=== PATIENT | female | born 1990 | race Caucasian/White ===

== ENCOUNTER 2018-03-27 17:31 | Emergency (ER) | payer MEDICAID, SELFPAY ==
[2018-03-27 17:33] VITALS: BP 132/89; PULSE 102; RESP 16; TEMP 36.2; O2SAT 98; BMI 35.2
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
[2018-03-27 18:51] VITALS: BP 137/94
== END 2018-03-27 19:13 | disposition home or self-care (01) ==
LOC: ED 19:03
PROVIDERS: Emergency Provider Emergency Medicine
DX: O99.89 Other specified diseases and conditions complicating pregnancy, childbirth and the puerperium (principal); S39.91XA Unspecified injury of abdomen, initial encounter; W50.0XXA Accidental hit or strike by another person, initial encounter; Y93.89 Activity, other specified; Y92.129 Unspecified place in nursing home as the place of occurrence of the external cause; Y99.0 Civilian activity done for income or pay; O24.313 Unspecified pre-existing diabetes mellitus in pregnancy, third trimester; E11.8 Type 2 diabetes mellitus with unspecified complications; Z79.4 Long term (current) use of insulin; Z3A.34 34 weeks gestation of pregnancy
CPT/HCPCS: 99281

== ENCOUNTER 2018-03-27 19:15 | Outpatient (CLI) | payer MEDICAID, SELFPAY ==
[2018-03-27 20:34] LABS: Absolute Lymphocyte Count 1.68 X10^3/ul (0.83-4.51); Absolute Neutrophil Count 6.3 X10^3/uL (2.0-7.7); Eosinophil# 0.01 X10^3/uL; Eosinophils% 0.1 % (0-5); Hematocrit 35.3 % (37-47); Hemoglobin 11.3 g/dl (12.0-15.0); Lymphocyte # 1.68 X10^3/ul (4.0); Mean Corpuscular Hgb 26.3 pg (27.0-32.0); Mean Corpuscular Volume 82.1 fL (81-99); Mean Platelet Vol. 10.2 fl (6.2-12.0); Monocyte% 4.8 % (0-10); Neutrophil # 6.29 X10^3/uL (2.7-7.7); Neutrophil % 74.9 % (47-70); POSITIVE COUNT NO; POSITIVE DIFFERENTIAL NO; POSITIVE MORPHOLOGY NO; Platelet Count 186 K/mm3 (150-450); RBC Distribution Width CV 16.5 % (11.6-14.6); RBC Distribution Width SD 48.8 fl (35.1-43.9); White Blood Count 8.4 K/mm3 (4.4-11.0)
[2018-03-27 20:41] LABS: Prothrombin Time (Protime)PT. 13.4 SECONDS (11.7-14.9)
[2018-03-27 20:42] LABS: Fibrinogen 645 mg/dl (203-444); Partial Thromboplast Time 29.1 Seconds (24.1-36.2)
[2018-03-27 22:00] VITALS: BMI 35.2
[2018-03-27 22:05] VITALS: RESP 18
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
== END 2018-03-27 22:05 | disposition home or self-care (01) ==
LOC: WPOUT 19:25 → WP 03-28 08:40
PROVIDERS: Obstetrics & Gynecology
DX: O99.89 Other specified diseases and conditions complicating pregnancy, childbirth and the puerperium (principal); S39.91XA Unspecified injury of abdomen, initial encounter; W50.0XXA Accidental hit or strike by another person, initial encounter; Y93.89 Activity, other specified; Y92.129 Unspecified place in nursing home as the place of occurrence of the external cause; Y99.0 Civilian activity done for income or pay; O24.313 Unspecified pre-existing diabetes mellitus in pregnancy, third trimester; E11.9 Type 2 diabetes mellitus without complications; Z79.4 Long term (current) use of insulin; Z3A.34 34 weeks gestation of pregnancy
CPT/HCPCS: 36415; 59025; 59050; 85025; 85384; 85610; 85730; 99218; 99281; G0378

== ENCOUNTER 2018-04-15 05:42 | Inpatient (IN) | payer MEDICAID, SELFPAY ==
[2018-04-10 13:14] VITALS: BMI 36.8
[2018-04-15] VITALS (20 sets, daily range): BP systolic 115–139; BP diastolic 64–92; PULSE 52–82; RESP 16–18; TEMP 35.8–36.6; O2SAT 95–99; BMI 36.6; BMI 36.8
[2018-04-15] MEDS: Lactated Ringers 1,000 ML 999 ML IV ×2 (05:50→07:01)
[2018-04-15 06:20] LABS: Bedside Glucose 97 mg/dL (70-110)
[2018-04-15 06:28] LABS: Absolute Lymphocyte Count 1.67 X10^3/ul (0.83-4.51); Absolute Neutrophil Count 5.9 X10^3/uL (2.0-7.7); Basophil# 0.01 X10^3/uL; Basophil% 0.1 % (0-1); Eosinophil# 0.04 X10^3/uL; Eosinophils% 0.5 % (0-5); Hematocrit 34.1 % (37-47); Hemoglobin 11.1 g/dl (12.0-15.0); Lymphocyte # 1.67 X10^3/ul (4.0); Lymphocyte % 20.2 % (19-41); Mean Corp Hgb Conc 32.6 g/gl (32-36); Mean Corpuscular Hgb 26.7 pg (27.0-32.0); Mean Platelet Vol. 10.4 fl (6.2-12.0); Monocyte# 0.63 X10^3/uL; Monocyte% 7.6 % (0-10); Neutrophil # 5.87 X10^3/uL (2.7-7.7); Neutrophil % 71.1 % (47-70); Platelet Count 242 K/mm3 (150-450); RBC Distribution Width CV 16.2 % (11.6-14.6); RBC Distribution Width SD 48.1 fl (35.1-43.9); Red Blood Count 4.16 M/mm3 (4.2-5.4); White Blood Count 8.3 K/mm3 (4.4-11.0)
[2018-04-15 06:33] LABS: AST(SGOT) 13 U/L (15-37); Alanine Aminotransfer ALT/SGPT 14 U/L (13-56); Creatinine, Serum 0.57 mg/dL (0.55-1.02); EST Glomerular Filtration Rate 134 mL/min (>60); Est Glom Filt Rate - Afr Amer 163 mL/min (>60); Estimated Creatinine Clearance 129.15 ml/min; Uric Acid 6.5 mg/dL (2.6-6.0)
[2018-04-15 06:34] LABS: International Normalized Ratio 1.1; Prothrombin Time (Protime)PT. 13.7 SECONDS (11.7-14.9)
[2018-04-15 06:35] LABS: Partial Thromboplast Time 31.6 Seconds (24.1-36.2)
[2018-04-15 06:36] LABS: POSITIVE COUNT NO; POSITIVE DIFFERENTIAL NO; POSITIVE MORPHOLOGY NO
[2018-04-15 06:46] LABS: Protein, Urine (Random) 19.3 mg/dL (<11.9); Protein:Creat Ratio 157 mg/g CRE (0-200)
[2018-04-15] MEDS: Sodium Citrate/Citric Acid 30 ML UDC PO (07:11)
[2018-04-15] MEDS: Cefazolin 2 GM in 0.9% Normal Saline 100 ML IV (07:37)
[2018-04-15] MEDS: Oxytocin 30 units/NS 500 ml 30 UNITS/500 ML IV.SOLN 167 UNITS IV (07:50)
[2018-04-15] MEDS: Ondansetron 4 MG/2 ML Vial IV (07:53)
[2018-04-15] MEDS: Lactated Ringers 1,000 ML 100 ML IV ×3 (08:30→23:40)
--- NOTE | 2018-04-15 08:35 | PLAC_PTH ---
PATIENT: JUAN TERRAZAS LOC: [facility] U#:[id number] AGE/SX: 27/F ROOM: WP007 RE04/15/[address]: Dr. Wilma Briscoe MD : 1990 BED: 1 DIS: 04/18/2018 SPEC #: [id number] RECD: 04/15/18 15:55 STATUS: [place] #: [id number] BAN: 04/15/18 08:[address]: Wilma Briscoe DEPT: SURGICAL PATHOLOGY RECD BY: Nathan Evans ENTERED: 04/16/18 10:04 SP TYPE: PLACENTA NEO DR: No Primary Care Phys Tissues: Placenta, NOS Procedures: Surgery Specimen Level V HEADER OPERATION: Repeat section PRE-OP DIAGNOSIS: Preeclampsia TISSUE SUBMITTED: Placenta MICROSCOPIC DIAGNOSIS Watson placenta (536 gm): Umbilical cord ? trivascular with no inflammation. Placental membranes ? mild chronic decidual inflammation. Placental disc ? mild Jailene-Jez change and intervillous congestion. AM:krysten 04/18/18 MICROSCOPIC DESCRIPTION Slides are reviewed. GROSS DESCRIPTION SPECIMEN: PLACENTA / CLINICAL INFORMATION: A. Weight: 3.052 kg B. Gestational Age: 37 weeks C. Sex: Female PLACENTAL WEIGHT (POST FIXATION): 536 gm PLACENTAL DIMENSIONS: 18 x 16 x 3 cm PLACENTAL SHAPE: Usual ovoid PLACENTAL WEIGHT FOR GESTATIONAL AGE: Within 10-99th percentile MEMBRANES - Present A. Insertion: The membranes are inserted in one-fourth circumference of placenta about 2 cm away from the margin. Grossly, the membrane of insertion appears to be circummarginate. B. Site of rupture from edge: The membranes are fragmented and distance of rupture cannot be assessed. C. Color of membrane: Umana-marie D. Abnormalities: None UMBILICAL CORD - Present A. Color: Umana-marie B. Insertion: Paracentral C. Length: 25 cm D. Diameter: 1.2 cm E. Number of vessels: Three F. Abnormalities: None PLACENTAL DISC - Present A. Color of surface: Umana-marie B. surface abnormalities: None C. Maternal cotyledons: Intact with minimal tears D. Attached retro placental clot: No clot E. Cut surface: Dark red and spongy F. Lesions: None G. Separate clot: Absent SECTIONS SUBMITTED: 1. Membrane roll 2. Cord, maternal end, insertion of membrane away from the margin 3. Cord, end, insertion of membrane away from the margin 4. Placental disc, and maternal surfaces 5. Placental disc, and maternal surfaces 6. Placental disc, and maternal surfaces SUZY:krysten 04/17/18 TC:5 CPT: 33027
--- NOTE | 2018-04-15 08:49 | PCM.OB.CSR ---
Delivery Classification: Scheduled Final FAISAL: 05/06/18 Final FAISAL Source: US <20 weeks Gestational age: 37 Weeks and 0 Days Indications for : Repeat Elective , - - Preeclampsia without severe features Gestational diabetes on insulin Description of Procedure: The patient was taken to the operating room. She was prepped and draped in the dorsal supine position with a leftward tilt. A Pfannenstiel skin incision was made approximately 2 cm above the symphysis pubis and carried through to underlying layer fascia with the scalpel. The fascia was incised incised in the midline and extended laterally with the Elaine scissors. The fascia was dissected off the rectus muscles with blunt and sharp dissection. The rectus muscles were in the midline and the peritoneum was entered bluntly. The peritoneal incision was stretched and the bladder blade was placed. The uterine incision was made in a low transverse fashion with the scalpel and extended superiorly and inferiorly with blunt dissection. The amniotic membranes were ruptured bluntly and clear amniotic fluid returned. The infant's head was brought to the incision in the flexed position and delivered without difficulty. The remainder of the was delivered with gentle traction and fundal pressure in the standard fashion. The mouth and nares were bulb suctioned. The cord was clamped and cut as the infant was stimulated. Cord clamping was delayed. The infant was handed off to the waiting nursing staff. The placenta was delivered with fundal massage and gentle traction in the standard fashion. The uterus was exteriorized and cleared of all clots and debris. The cervix was dilated with a ring forcep. The uterine incision was closed with #1 Vicryl in a running locked fashion. A second layer of the same suture was used in an imbricating fashion. The incision was examined and was found to be hemostatic. The uterus was placed back into the peritoneal cavity and hemostasis was again confirmed. The rectus muscles were examined and any bleeding was Bovie cauterized. The surgical teams outer gloves were changed. The parietal peritoneum and rectus muscles were closed en bloc with an 0 Vicryl running suture. The surgical teams outer gloves were then changed. The rectus fascia was examined and any bleeding was Bovie cauterized and the rectus fascia was closed with 0 PDS suture suture in a running standard fashion. The subcutaneous tissue was examining and any bleeding was Bovie cauterized. The subcutaneous tissue was reapproximated with 3-0 Vicryl suture. The skin was closed in a subcuticular fashion by the REED MAKER with me present in the labor and delivery suite. I performed the remainder of the procedure with assistance. All sponge, lap, and needle counts were correct. The patient was taken to her room for recovery in a stable condition. Amniotic Membrane Rupture Type: Artificial Amniotic Fluid Description: Clear Placenta Disposition: Sent to Pathology Drain: Schmid to straight drain Fluids Replaced: 1300 cc Cord Entanglement: None Cord Vessel Description: 3 Vessels Esitmated Blood Loss (ml): 700cc Infant Gender: Female (1 minute): 9 (5 minute): 9 Delayed cord clamping: Yes Complications: None - Admit VTE Documentation VTE Present on Admission: No VTE Mechan Device Prophylaxis: SCD's VTE Pharm Prophylaxis ordered?: Yes
[2018-04-15 09:16] LABS: Bedside Glucose 82 mg/dL (70-110)
[2018-04-15] MEDS: Ketorolac 30 MG/ML Syringe IV ×3 (12:37→23:40)
[2018-04-15] MEDS: AMOXICILLIN 500 MG CAPSULE PO ×3 (12:38→23:48)
[2018-04-15] MEDS: Lactated Ringers 500 ML 999 ML IV (18:54)
[2018-04-16] VITALS (7 sets, daily range): BP systolic 117–122; BP diastolic 73–76; PULSE 63–80; RESP 15–18; TEMP 36.4–36.7; O2SAT 95–98
[2018-04-16 04:44] LABS: Hemoglobin 9.1 g/dl (12.0-15.0); Mean Corp Hgb Conc 32.5 g/gl (32-36); Mean Corpuscular Hgb 27.2 pg (27.0-32.0); Mean Corpuscular Volume 83.6 fL (81-99); Mean Platelet Vol. 10.1 fl (6.2-12.0); Platelet Count 164 K/mm3 (150-450); RBC Distribution Width CV 16.2 % (11.6-14.6); RBC Distribution Width SD 48.2 fl (35.1-43.9); Red Blood Count 3.35 M/mm3 (4.2-5.4); White Blood Count 8.6 K/mm3 (4.4-11.0)
[2018-04-16 04:45] LABS: Scan Indicated on CBC? Y/N NO
[2018-04-16] MEDS: Enoxaparin 40 MG/0.4 ML Syringe SC (06:16)
[2018-04-16] MEDS: AMOXICILLIN 500 MG CAPSULE PO ×3 (06:16→19:48)
[2018-04-16] MEDS: Ketorolac 30 MG/ML Syringe IV ×3 (06:16→18:03)
[2018-04-16 06:31] LABS: Bedside Glucose 107 mg/dL (70-110)
[2018-04-16] MEDS: Acetaminophen 500 MG Tablet 1000 MG PO (08:21)
--- NOTE | 2018-04-16 09:01 | PCM.PN.OB ---
Subjective: Doing well per patient and nursing staff. Ross catheter in place, good output. Taking PO without difficulty. Up to chair last evening, none this am. Denies any headaches, visual changes, chest pain, shortness of breath, increased vaginal bleeding/clots, increased pain, or leg pain. Planning D/C home tomorrow. - Physical Exam General: Alert, Oriented x3, Cooperative HEENT: Atraumatic, Normocephalic Cardiovascular: Regular rate, Regular Rhythm, No murmurs Abdomen: Bowel Sounds Present, - - Fundus firm 2 below U. Dressing dry and intact. Neurological: Deep Tendon Reflexes 2+/4 and Symmetrical, - - No clonus. Mehul's negative bilaterally . Psych/Mental Status: Normal Affect, Appropriate Vital Signs Temp Pulse Resp BP Pulse Ox 98.1 F 63 15 117/73 95 04/16/18 07:26 04/16/18 07:26 04/16/18 07:26 04/16/18 07:26 04/16/18 07:26 Oxygen Delivery Method Room Air Weight: 215 lb Body Mass Index (BMI) 36.8 Intake and Output for Last 24 Hours 04/14/18 04/15/18 04/16/18 23:59 23:59 23:59 Intake Total 5477 / 5477 1186 / 1186 Output Total 1400 / 1400 1900 / 1900 Balance 4077 / 4077 -714 / -714 Laboratory Tests Past 24 Hrs 04/16/18 04:15 WBC 8.6 RBC 3.35 L Hgb 9.1 L Hct 28.0 L MCV 83.6 MCH 27.2 MCHC 32.5 RDW 16.2 H RDW Differential 48.2 H Plt Count 164 MPV 10.1 POC Glucose 04/16/18 04/15/18 06:25 09:07 POC Glucose 107 82 Medical Necessity - Tobacco Use Smoking Status: Current every day smoker Assessment/Plan A: POD #1 Repeat Section, elective Gestational Diabetes Mellitus- on insulin Pre-eclampsia without severe features P: 1) Routine care. 2) BP stable. 3) D/C ross 4) Up to chair and ambulation today 5) Planning D/C home tomorrow.
[2018-04-16] MEDS: Senna/Docusate Sodium 1 Tablet PO ×2 (10:25→22:48)
[2018-04-16] MEDS: oxyCODONE 5 MG Tablet PO ×3 (11:23→22:48)
[2018-04-16] MEDS: 0.9% Saline Lock 10 ML Syringe IV ×2 (12:15→18:04)
[2018-04-17] VITALS (16 sets, daily range): BP systolic 129–165; BP diastolic 74–88; PULSE 71–89; RESP 16–20; TEMP 36.3–36.8; O2SAT 95–99
[2018-04-17] MEDS: Naproxen 250 MG Tablet PO ×3 (01:16→22:17)
[2018-04-17] MEDS: AMOXICILLIN 500 MG CAPSULE PO ×4 (01:17→17:41)
[2018-04-17] MEDS: oxyCODONE 5 MG Tablet PO ×3 (03:16→19:41)
[2018-04-17] MEDS: Senna/Docusate Sodium 1 Tablet PO ×2 (08:31→22:18)
--- NOTE | 2018-04-17 08:53 | PCM.PN.OB ---
Subjective: pain moderately well-controlled, average lochia, some flatus, no BM. - Physical Exam General: Alert, Cooperative, No apparent distress Abdomen: Soft, Non-Distended - moderately, softly, Tender - appropriately Extremities: Edema - 1+ Skin: Incision - clean, dry and intact bandage Vital Signs Temp Pulse Resp BP Pulse Ox 98.3 F 72 17 132/74 H 95 04/17/18 03:18 04/17/18 03:18 04/17/18 03:18 04/17/18 03:18 04/16/18 14:30 Oxygen Delivery Method Room Air Weight: 97.522 kg Body Mass Index (BMI) 36.8 Intake and Output for Last 24 Hours 04/15/18 04/16/18 04/17/18 23:59 23:59 23:59 Intake Total 5477 / 5477 1186 / 1186 Output Total 1400 / 1400 2250 / 2250 Balance 4077 / 4077 -1064 / -1064 Medical Necessity - Tobacco Use Smoking Status: Current every day smoker Assessment/Plan POD#2 s/p repeat c/s likely home tomorrow infant getting ZULAY scoring due to tylenol 3 use during
--- NOTE | 2018-04-17 08:58 | PCM.DCCSEC ---
Discharge Diet: No Restrictions Discharge Activity: Return to Normal Activity, May Not Drive - for 2 weeks, May not drive while taking narcotic pain medications., May Shower, May Take a Tub Bath - in 7 days. May resume sexual activity in: 4-6 weeks Lifting Restrictions: 20 pounds Additional Activity Instructions:: Nothing in the vagina for 4-6 weeks. You may return to work/school in 6 weeks. Call your doctor if your incision/area has: Continuous Slow Oozing, Sudden Increased Bleeding, Increased Pain/ Swelling, Increased Redness, Foul Smelling Discharge Call your doctor if you observe: Fever of 101 or Higher, Using more than one pad per hour - for 2 hours Suture Line Care: Avoid Pulling/Pushing, Avoid Pinching/Bending Cleanse incision/area with: Keep Dressing Clean & Dry Additional Instructions: If you experience any of the following, contact your healthcare provider. Bleeding that soaks a pad every hour for 2 hours Fever 100.4 or higher Unrelieved incision or abdominal pain Swelling, redness, discharge or bleeding from your incision or episiotomy site Your incision begins to separate Problems urinating (including inability to urinate or burning while urinating). Visual changes Severe headache Flu-like symptoms Pain or redness in one of both of your breasts Pain, warmth, tenderness or swelling in your legs, especially the calf area Frequent nausea and vomiting Symptoms of depression or anxiety If you experience any of the following, call 911 or go to the nearest Emergency Room. Chest pain Problems breathing Seizure activity Partial or complete paralysis of a body part, slurred speech, weakness or drooping of the face, or a sudden inability to walk or hold your balance Allergies/Adverse Reactions: Allergies No Known Allergies Allergy (Verified 03/27/18 22:14) Medications to take at Discharge Ferrous Sulfate 325 mg PO DAILY@0800 03/27/18 Insulin NPH Human Isophane [Humulin N] 8 units SQ QHS 03/27/18 Pnv95/Ferrous Fumarate/FA [ Formula] 1 each PO DAILY 03/27/18 Insulin NPH Hum/Reg Insulin Hm [Humulin 70-30 Vial] 5 unit SQ BREAKFAST 04/10/18 Amoxicillin [Amoxil] 500 mg PO Q6H 04/15/18 Docusate Sodium [Colace] 100 mg PO BID PRN PRN #60 cap 04/17/18 Ibuprofen [Motrin] 800 mg PO TID PRN PRN #60 tab 04/17/18 Oxycodone HCl/Acetaminophen [Percocet 5/325] 1 - 2 tablet PO Q8 PRN 7 Days #28 tablet 04/17/18 The following prescriptions were given: Docusate Sodium [Colace] 100 mg PO BID PRN PRN #60 cap PRN Reason: Constipation Ibuprofen [Motrin] 800 mg PO TID PRN PRN #60 tab PRN Reason: Pain Oxycodone HCl/Acetaminophen [Percocet 5/325] 1 - 2 tablet PO Q8 PRN 7 Days #28 tablet PRN Reason: Pain Follow-Up: Call to make an appointment with your doctor for an incision check in 1-2 weeks. You will also need a 6 week post- follow up appointment. Test results from this visit will be discussed in further detail at your follow-up appointment, if applicable. Please Follow Up With: Wilma Briscoe MD - Call to make an appointment for an incision check in 1-2 [phone] When: You will need a post check in 6 weeks. Primary Care Physician: Care Physician,No Primary [Primary Care Provider] -
--- NOTE | 2018-04-17 13:39 | NURSING ---
Patient reports seeing a quarter-sized clot in toilet after voiding.
--- NOTE | 2018-04-17 13:50 | NURSING ---
Reflexes +1. No clonus. Patient denies headache, visual disturbances, RUQ pain, and nausea/vomiting.
[2018-04-17 14:16] LABS: Hematocrit 32.4 % (37-47); Mean Corp Hgb Conc 30.9 g/gl (32-36); Mean Corpuscular Volume 84.4 fL (81-99); Mean Platelet Vol. 9.8 fl (6.2-12.0); Platelet Count 217 K/mm3 (150-450); RBC Distribution Width CV 16.8 % (11.6-14.6); RBC Distribution Width SD 51.3 fl (35.1-43.9); Red Blood Count 3.84 M/mm3 (4.2-5.4); White Blood Count 8.3 K/mm3 (4.4-11.0)
[2018-04-17 14:21] LABS: International Normalized Ratio 0.9; Prothrombin Time (Protime)PT. 12.5 SECONDS (11.7-14.9)
[2018-04-17 14:22] LABS: Partial Thromboplast Time 30.5 Seconds (24.1-36.2)
[2018-04-17 14:23] LABS: Scan Indicated on CBC? Y/N NO
[2018-04-17 14:25] LABS: AST(SGOT) 13 U/L (15-37); Alanine Aminotransfer ALT/SGPT 12 U/L (13-56); Creatinine, Serum 0.66 mg/dL (0.55-1.02); EST Glomerular Filtration Rate 114 mL/min (>60); Est Glom Filt Rate - Afr Amer 138 mL/min (>60); Estimated Creatinine Clearance 111.54 ml/min; Uric Acid 7.3 mg/dL (2.6-6.0)
[2018-04-17 15:58] LABS: Protein, Urine (Random) 35.2 mg/dL (<11.9); Protein:Creat Ratio 609 mg/g CRE (0-200)
--- NOTE | 2018-04-17 16:52 | CASEMGMT ---
Social Work Note Labor and Delivery Unit Consult received today to assess mother of baby (MOB) per protocol, as infant on ZUALY for reported prescribed opiates during . Medical records reviewed. This scenario writer familiar with MOB from previous delivery at [facility]. Plan: Will plan to see MOB on 04-18-18 for assessment, support, and determination of resource needs. -JAZMINE Elam, TOW TRUCK OPERATOR
--- NOTE | 2018-04-17 17:17 | PCM.PN.OB ---
Subjective: No complaints. Denies headache or blurry vision. - Physical Exam General: Alert, Oriented x3 Vital Signs Temp Pulse Resp BP Pulse Ox 97.5 F L 71 16 156/86 H 97 04/17/18 13:34 04/17/18 13:34 04/17/18 13:34 04/17/18 16:20 04/17/18 13:34 Oxygen Delivery Method Room Air Weight: 215 lb Body Mass Index (BMI) 36.8 Intake and Output for Last 24 Hours 04/15/18 04/16/18 04/17/18 23:59 23:59 23:59 Intake Total 5477 / 5477 1186 / 1186 Output Total 1400 / 1400 2250 / 2250 Balance 4077 / 4077 -1064 / -1064 Laboratory Tests Past 24 Hrs 04/17/18 04/17/18 04/17/18 14:05 14:05 14:05 WBC 8.3 RBC 3.84 L Hgb 10.0 L Hct 32.4 L MCV 84.4 MCH 26.0 L MCHC 30.9 L RDW 16.8 H RDW Differential 51.3 H Plt Count 217 MPV 9.8 PT 12.5 INR 0.9 APTT 30.5 Creatinine 0.66 Estim Creat Clear Calc 111.54 Est GFR (MDRD) Af Amer 138 Est GFR (MDRD) Non-Af 114 Uric Acid 7.3 H AST 13 L ALT 12 L U Random Total Protein Urine Creatinine Protein/Creatinin Ratio 04/17/18 15:30 WBC RBC Hgb Hct MCV MCH MCHC RDW RDW Differential Plt Count MPV PT INR APTT Creatinine Estim Creat Clear Calc Est GFR (MDRD) Af Amer Est GFR (MDRD) Non-Af Uric Acid AST ALT U Random Total Protein 35.2 H Urine Creatinine 57.80 Protein/Creatinin Ratio 609 H Medical Necessity - Tobacco Use Smoking Status: Current every day smoker Assessment/Plan POD#2 PreE - PreE labs reviewed. Plan for 24 hours Mg. Monitor BP's & will treat if in severe range. Plan discussed with patient.
[2018-04-17] MEDS: Lactated Ringers 1,000 ML 25 ML IV (17:45)
[2018-04-17] MEDS: Magnesium Sulfate 20 GM/500 ML BAG IV (18:11)
--- NOTE | 2018-04-17 21:16 | NURSING ---
Report given to Radha Vines RN. She will assume care of patient at this time.
[2018-04-18] VITALS (13 sets, daily range): BP systolic 119–146; BP diastolic 77–88; PULSE 79–99; RESP 16–18; TEMP 36.4–37.1; O2SAT 93–98
[2018-04-18] MEDS: AMOXICILLIN 500 MG CAPSULE PO ×2 (00:44→06:40)
[2018-04-18] MEDS: Magnesium Sulfate 20 GM/500 ML BAG IV (04:11)
[2018-04-18] MEDS: oxyCODONE 5 MG Tablet PO (06:09)
--- NOTE | 2018-04-18 08:47 | PCM.PN.OB ---
Subjective: pain well controlled, average lochia, no N/V. Denies FUENTES, visual changes or epigastric pain - Physical Exam General: Alert, Cooperative, No apparent distress Abdomen: Soft, Non-Distended Extremities: Edema - 1+, - - 1+ DTRs, no clonus Skin: Incision - bandage clean,d ry and intact Vital Signs Temp Pulse Resp BP Pulse Ox 97.5 F L 80 18 135/85 H 95 04/18/18 08:00 04/18/18 08:00 04/18/18 08:00 04/18/18 08:00 04/18/18 08:00 Oxygen Delivery Method Room Air Weight: 97.522 kg Body Mass Index (BMI) 36.8 Intake and Output for Last 24 Hours 04/16/18 04/17/18 04/18/18 23:59 23:59 23:59 Intake Total 1186 / 1186 809 / 809 1055 / 1055 Output Total 2250 / 2250 1400 / 1400 1425 / 1425 Balance -1064 / -1064 -591 / -591 -370 / -370 Laboratory Tests Past 24 Hrs 04/17/18 04/17/18 04/17/18 14:05 14:05 14:05 WBC 8.3 RBC 3.84 L Hgb 10.0 L Hct 32.4 L MCV 84.4 MCH 26.0 L MCHC 30.9 L RDW 16.8 H RDW Differential 51.3 H Plt Count 217 MPV 9.8 PT 12.5 INR 0.9 APTT 30.5 Creatinine 0.66 Estim Creat Clear Calc 111.54 Est GFR (MDRD) Af Amer 138 Est GFR (MDRD) Non-Af 114 Uric Acid 7.3 H AST 13 L ALT 12 L U Random Total Protein Urine Creatinine Protein/Creatinin Ratio 04/17/18 15:30 WBC RBC Hgb Hct MCV MCH MCHC RDW RDW Differential Plt Count MPV PT INR APTT Creatinine Estim Creat Clear Calc Est GFR (MDRD) Af Amer Est GFR (MDRD) Non-Af Uric Acid AST ALT U Random Total Protein 35.2 H Urine Creatinine 57.80 Protein/Creatinin Ratio 609 H Medical Necessity - Tobacco Use Smoking Status: Current every day smoker Assessment/Plan POD#3 ok to d/c magnesium, preeclampsia w/o severe features. Start labetalol. If BP controlled w/ po meds ok to d/c home after lunch doing well
--- NOTE | 2018-04-18 08:50 | PCM.DC.SUM ---
Discharge Date and Diagnosis Date of Admission: 04/15/18 Date of Discharge: 04/18/18 Hospital Course and Treatment Operations: - - Repeat LTCS via pfannensteil skin incision Procedures: None Summary of Care Provided: The patient is a 27 year old emale admitted for repeat c/s. This was performed without difficulty. She had mild acute blood loss anemia. She had on POD#2 increased BP and increased protein in urine, however, this had lochia in it. Labs stable other than increase in uric acid. No severe symptoms. Had magnesium for 18 hrs. D/anmol and started on po labetolol. D/anmol home on POD#3 with labetalol, preeclampsia precautions and routine pain prescriptions. [] Discharge Diet: No Restrictions Discharge Activity: Return to Normal Activity, May Not Drive - for 2 weeks, May not drive while taking narcotic pain medications., May Shower, May Take a Tub Bath - in 7 days. May resume sexual activity in: 4-6 weeks Additional Activity Instructions:: Nothing in the vagina for 4-6 weeks. You may return to work/school in 6 weeks. Call your doctor if your incision/area has: Continuous Slow Oozing, Sudden Increased Bleeding, Increased Pain/ Swelling, Increased Redness, Foul Smelling Discharge Call your doctor if you observe: Fever of 101 or Higher, Using more than one pad per hour - for 2 hours Suture Line Care: Avoid Pulling/Pushing, Avoid Pinching/Bending Cleanse incision/area with: Keep Dressing Clean & Dry Home Medications: Medications to take at Discharge Ferrous Sulfate 325 mg PO DAILY@0800 03/27/18 Pnv95/Ferrous Fumarate/FA [ Formula] 1 each PO DAILY 03/27/18 Amoxicillin [Amoxil] 500 mg PO Q6H 04/15/18 Docusate Sodium [Colace] 100 mg PO BID PRN PRN #60 cap 04/17/18 Ibuprofen [Motrin] 800 mg PO TID PRN PRN #60 tab 04/17/18 Oxycodone HCl/Acetaminophen [Percocet 5/325] 1 - 2 tablet PO Q8 PRN 7 Days #28 tablet 04/17/18 Labetalol [Trandate (Beta Tre)] 100 mg PO BID #60 tab 04/18/18 Following Prescrptions Were Given to Patient: Docusate Sodium [Colace] 100 mg PO BID PRN PRN #60 cap PRN Reason: Constipation Ibuprofen [Motrin] 800 mg PO TID PRN PRN #60 tab PRN Reason: Pain Oxycodone HCl/Acetaminophen [Percocet 5/325] 1 - 2 tablet PO Q8 PRN 7 Days #28 tablet PRN Reason: Pain Labetalol [Trandate (Beta Tre)] 100 mg PO BID #60 tab Primary Care Physician: Care Physician,No Primary [Primary Care Provider] - Please Follow Up With: Wilma Briscoe MD - Call to make an appointment for an incision check in 1-2 [phone] When: You will need a post check in 6 weeks. Medical Necessity - Tobacco Use Smoking Status: Current every day smoker Meaningful Use Info Meaningful Use Diagnoses (Choose all that apply): None applicable
[2018-04-18] MEDS: Labetalol 100 MG Tablet PO (09:05)
[2018-04-18] MEDS: 0.9% Saline Lock 10 ML Syringe IV (10:06)
--- NOTE | 2018-04-18 11:01 | NURSING ---
Magnesium Sulfate d/c'd at 0905 and labetolol 100mg po given as ordered at this time. LR @ 25cc/hr continued. Will continue to monitor BP's.
[2018-04-18] MEDS: Senna/Docusate Sodium 1 Tablet PO (11:20)
--- NOTE | 2018-04-18 11:20 | CASEMGMT ---
Social Work Assessment Labor and Delivery Unit Date of Referral: 04/17/2018 Time of Referral: 06 Referred By: Dr. Aguilar Date of Intervention: 04/18/2018 Time of Intervention: 1120 Reason for Referral: Baby on ZULAY per protocol; please evaluate, mother of baby (MOB) reportedly took prescribed Tylenol #3 during History obtained from: Medical record, mother of baby (MOB) Zhane Driver, and father of baby (FOB) Stone Muñoz. Household composition: MOB, FOB, and their older child currently live with MOBs aaron Hall. Home situation has been such for 6 months now. MOB reports home situation is safe and adequate. Patient's parent/guardian status: MOB and FOB have been together for at least 7 years now. Spoke with MOB privately and MOB does deny any form of abuse in relationship with FOB. MOB and FOB now share two children together: Ibis Muñoz, born 02[birth year]11[birth year]11 and baby Haroon Muñoz, born 04[birth year]2018. Medical History: MOB with care starting at 6 weeks. MOB delivered repeat caesarian section. Baby weighed 7 pounds 6 ounces at . Apgars 9 and 9 at 1 and 5 minutes of life. Educational Status: MOB graduated from high school and reportedly able to read, write, no learning comprehension. 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 MOB plans to return to this employment. FOB works at [employer]. Infant Supplies: MOB reports to have needed supplies including bassinet, car seat, pack-n-play, clothing, diapers, wipes. Childcare/Caregiver(s): MOB will be primary caregiver with FOBs help. MOBs grandmother and aunt will be possibilities for help when MOB returns to work. Transportation: No reported issues. Programs/Agencies Involved: MOB has Medicaid. No other agency involvement. Reports history of WIC but nothing currently. Children Services/Legal Issues: Deny past or present issues or involvement. Behavioral Health Issues: Mental Health History: MOB reports did develop some depression after of Ibis. MOB reports was home for about 4 years after Ibis was born and eventually MOB became depressed, feeling isolated from adult interactions. FOB worked a lot and was never in the mood to go out of the house when home, so MOB felt even more isolated. MOB reports at the time she and FOB did split up for a short time, which did not help matters. MOB reports started to feel better when got out of the house and back into the work force. MOD denies any thoughts, plans, or intent for suicide. Substance Use History: MOB denies use or abuse of alcohol or illicit substance use. MOB reports was prescribed 6 count of Tylenol #3 with Codeine in the last 2 weeks, and this was related to molar removal. MOB reports medicine prescribed by [facility] in [place]. MOB denies any other drug use in . MOB does smoke tobacco. Family History: not discussed Drug Screens: Urine drug screen negative prenatally on 09-13-17. Babys urine is negative, and meconium is pending. ZULAY: scores have been low between 0-3 this stay. Family/Social Stressors: MOB and FOB moved into aunts home about 6 months ago. MOB reports his has been helpful. No other reported stressors currently. Support Systems: MOB reports FOB, MOBs grandmother, Aunt Isabel are all helpful to MOB. ASSESSMENT: MOB and FOB cooperative during social work visit, pleasant, and nondefenisve. FOB left the room without issue when social services analyst requested. MOB teary eyed when talking about past depression. MOB does reports willingness to let FOB or other supports know if depression arises again. MOB reports plan to return to work, as reports belies that getting out of the house was helpful to improving MOBs mental health. MOB does reports to feel a connection to this baby and to love the baby. Observed MOB to be attentive to baby, to touch baby gently, and to gaze at baby during social work visit. No reported concerns by nursing staff regarding mother/child interactions or bonding. From MOBs report it appears that that narcotic opiate ingestion was short in course and prescribed. Babys ZULAY symptoms have been low. Will call [facility] however, due to new [place] Act regarding Substance Exposed . MOB does reports to have support at home going and to have needed supplies to care for baby. PLAN: MOB and baby to home. depression packet given, including education regarding some online supports. [facility] resource packet given as well. Will call [facility], due to new [place] Act regarding Substance Exposed though this should not hold up any discharge. -KARIME Elam, OFFICER LIEUTENANT
--- NOTE | 2018-04-18 13:45 | CASEMGMT ---
Social Work Note Labor and Delivery Unit Called [facility] ([facility]) and spoke with Tanya in the intake department. Referral given due to substance exposed per report that MOB took 6 prescribed Tylenol #3 with Codeine this , in the last trimester. Brief maternal and infant histories provided, including baby's ZULAY scoring and negative urine drug screen. Report will be written up though per Tanya unsure if will be screened in for investigation. Meconium drug screen is pending. Should this show any drugs or concerns for other substances will call back to [facility]. Otherwise, no other services requested or indicted. -JAZMINE Elam, EXTRUDING PRESS ADJUSTER
[2018-04-18 15:38] LABS: Pathology Specimen OB SEE PATHOLOGY REPORT
== END 2018-04-18 13:10 | disposition home or self-care (01) | DRG 370 ==
PROVIDERS: Admitting Provider Obstetrics & Gynecology; Visit Provider Obstetrics & Gynecology
PROC: 10D00Z1 Extraction of Products of Conception, Low, Open Approach (ICD-10-PCS; CPT 59514; principal; 2018-04-15 07:15)
DX: O34.211 Maternal care for low transverse scar from previous cesarean delivery (principal); O14.93 Unspecified pre-eclampsia, third trimester; O99.03 Anemia complicating the puerperium; D62 Acute posthemorrhagic anemia; O24.424 Gestational diabetes mellitus in childbirth, insulin controlled; O99.613 Diseases of the digestive system complicating pregnancy, third trimester; K21.9 Gastro-esophageal reflux disease without esophagitis; O99.334 Smoking (tobacco) complicating childbirth; F17.210 Nicotine dependence, cigarettes, uncomplicated; Z3A.37 37 weeks gestation of pregnancy; Z37.0 Single live birth; Z87.59 Personal history of other complications of pregnancy, childbirth and the puerperium
CPT/HCPCS: 59025; 82565; 82570; 82962; 84156; 84450; 84460; 84550; 85025; 85027; 85610; 85730; 86850; 86900; 88307; 99218; J7120; A4216; G0378; J2405